=== PATIENT | female | born 2000 | race Two or more races ===

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

== ENCOUNTER → 2020-12-31 | Outpatient (CLI) | payer OTHER | END | disposition home or self-care (01) | LOC: PRENATAL 10:05 | PROVIDERS: ATTEND Obstetrics & Gynecology Maternal & Fetal Medicine | DX: O35.0XX1 Maternal care for (suspected) central nervous system malformation in fetus, fetus 1 (principal); O35.3XX1 Maternal care for (suspected) damage to fetus from viral disease in mother, fetus 1; O98.512 Other viral diseases complicating pregnancy, second trimester; Z36.89 Encounter for other specified antenatal screening; Z3A.24 24 weeks gestation of pregnancy ==

== ENCOUNTER → 2021-01-24 | Outpatient (CLI) | payer OTHER | END | disposition home or self-care (01) | LOC: OBS/DEL 19:43 | PROVIDERS: ATTEND Obstetrics & Gynecology | DX: O26.892 Other specified pregnancy related conditions, second trimester (principal); R10.2 Pelvic and perineal pain; Z3A.27 27 weeks gestation of pregnancy ==

== ENCOUNTER 2021-03-05 16:27 | Inpatient (IN) | payer OTHER ==
[~2021-03-05] VITALS: Ht 157.5 cm; Wt 51.3 kg
== END 2021-03-10 11:48 | disposition home or self-care (01) | DRG 833 ==
LOC: OB/GYN 16:27 → LDR 16:27 → OB/GYN 03-06 17:17 → LDR 03-10 11:42
PROVIDERS: ADMIT Obstetrics & Gynecology; ATTEND Obstetrics & Gynecology
PROC: 4A1HXFZ Monitoring of Products of Conception, Cardiac Rhythm, External Approach (ICD-10-PCS; principal; 2021-03-05)
DX: O47.03 False labor before 37 completed weeks of gestation, third trimester (principal); Z3A.32 32 weeks gestation of pregnancy

== ENCOUNTER 2021-04-08 20:42 | Outpatient (CLI) | payer OTHER ==
[2021-04-08] MEDS ORDERED: PRENATAL TABLE1 EAC1 PO (21:12)
== END 2021-04-09 10:58 | disposition home or self-care (01) ==
LOC: OBS/DEL 20:42
PROVIDERS: ATTEND Obstetrics & Gynecology
DX: O47.1 False labor at or after 37 completed weeks of gestation (principal); Z3A.37 37 weeks gestation of pregnancy

== ENCOUNTER 2021-04-12 07:56 | Inpatient (IN) | payer OTHER ==
[~2021-04-12] VITALS: Ht 154.9 cm; Wt 52.6 kg
[~2021-04-12 07:56] MED LIST changes: +PRENATAL TABLE1 EAC1 PO
== END 2021-04-14 16:02 | disposition home or self-care (01) | DRG 807 ==
LOC: OB/GYN 07:56 → LDR 07:56 → OB/GYN 12:50
PROVIDERS: ADMIT Obstetrics & Gynecology; ATTEND Obstetrics & Gynecology
PROC: 10E0XZZ Delivery of Products of Conception, External Approach (ICD-10-PCS; principal; 2021-04-12)
PROC: 10907ZC Drainage of Amniotic Fluid, Therapeutic from Products of Conception, Via Natural or Artificial Opening (ICD-10-PCS; 2021-04-12)
PROC: 4A1HXFZ Monitoring of Products of Conception, Cardiac Rhythm, External Approach (ICD-10-PCS; 2021-04-12)
DX: O80 Encounter for full-term uncomplicated delivery (principal); Z37.0 Single live birth; Z3A.39 39 weeks gestation of pregnancy